=== PATIENT | male | born 1965 | race Two or more races ===

== ENCOUNTER 2018-11-15 10:01 | Inpatient (IN) | payer MEDICARE, OTHER, MEDICAID | END 2018-11-17 13:45 | disposition home or self-care (01) | LOC: ER 10:01 → TELE-CENTR 11-16 17:13 → TELE 10:02 → TELE-CENTR 14:22 | DX: R07.89 Other chest pain (principal); R00.1 Bradycardia, unspecified; F41.9 Anxiety disorder, unspecified; G47.00 Insomnia, unspecified; F32.9 Major depressive disorder, single episode, unspecified; M54.9 Dorsalgia, unspecified; G89.29 Other chronic pain; M94.0 Chondrocostal junction syndrome [Tietze]; E11.9 Type 2 diabetes mellitus without complications ==

== ENCOUNTER 2019-11-01 13:06 | Emergency (ER) | payer MEDICARE, OTHER ==
[~2019-11-01] VITALS: Ht 165.1 cm; Wt 70.3 kg
[~2019-11-01 13:06] MED LIST: BUSP5TAB51 PO; FENT25DI2 TD; HYDR2TAB58 PO; PREG50CA PO; TRAZ50TA2 PO
[2019-11-01 13:20] VITALS: BP 119/81
[2019-11-01] MEDS ORDERED: KETOROLAC TROMETH 60MG/2ML VIAL IM ONE (14:00)
== END 2019-11-01 14:22 | disposition home or self-care (01) ==
LOC: ER 13:06
DX: M25.461 Effusion, right knee (principal); M23.91 Unspecified internal derangement of right knee
CPT/HCPCS: 73562; 96372; 99283; J1885

== ENCOUNTER → 2021-08-21 | Emergency (ER) | payer MEDICARE, OTHER ==
[~2021-08-21] VITALS: Ht 165.1 cm; Wt 72.6 kg
[2021-08-21 22:28] VITALS: BP 139/80
== END | disposition left against medical advice (07) ==
LOC: ER 22:27
DX: F41.9 Anxiety disorder, unspecified (principal); R06.02 Shortness of breath; Z53.21 Procedure and treatment not carried out due to patient leaving prior to being seen by health care provider

== ENCOUNTER 2023-07-19 11:38 | Emergency (ER) | payer MEDICARE, OTHER ==
[~2023-07-19] VITALS: Ht 165.1 cm; Wt 80.5 kg
[~2023-07-19 11:38] MED LIST changes: +TRAZ-227 PO; -TRAZ50TA2 PO
[2023-07-19 12:32] VITALS: BP 125/81; PULSE 98; RESP 18; TEMP 98; O2SAT 95
[2023-07-19 13:42] LABS: Basophils # (auto) 0.1 10 ^3/uL (0-0.2); Eosinophils # (auto) 0.1 10 ^3/uL (0-0.8); Eosinophils % (auto) 1.4 % (0.0-7.0); Hematocrit 47.8 % (41.0-53.0); Hemoglobin 16.1 g/dL (13.5-17.5); Lymphocytes # (auto) 2.1 10 ^3/uL (0.4-5.4); Lymphocytes % (auto) 32.4 % (10.0-50.0); Mean Corpuscular Hgb Conc. 33.7 g/dL (32.0-36.0); Monocytes # (auto) 0.7 10 ^3/uL (0-1.3); Monocytes % (auto) 10.2 % (0.0-12.0); Neutrophils # (auto) 3.6 10 ^3/uL (1.6-8.6); Red Blood Cells 5.37 10^6/uL (4.5-5.90); Red Cell Distribution Width 13.5 % (11.8-14.3); White Blood Cell 6.6 10^3/uL (4.4-10.8)
[2023-07-19 13:56] LABS: Urine Bacteria NONE SEEN /hpf (None Seen); Urine Blood Negative /uL (Negative); Urine Clarity Clear (Clear); Urine Color Yellow (Yellow); Urine Mucus FEW (None Seen); Urine Protein, UAD TRACE (Negative); Urine Specific Gravity 1.024 (1.001-1.035); Urine Urobilinogen Normal (Negative); Urine WBC 1 /hpf (0 - 3); Urine pH 5.5 (5.0-8.0)
[2023-07-19 13:58] LABS: Amphetamine Screen, Urine Neg (NEGATIVE); Benzodiazephine Screen, Urine Pos (NEGATIVE)
[2023-07-19 13:59] LABS: Barbiturate Scree,Urine Neg (NEGATIVE); Cocaine Screen, Urine Neg (NEGATIVE); Opiate Scree,Urine Pos (NEGATIVE); Phencyclidine Screen, Urine Neg (NEGATIVE)
[2023-07-19 14:00] LABS: Cannabinoid Screen, Urine Pos (NEGATIVE)
[2023-07-19 14:02] LABS: Alanine Aminotransferase 15 U/L (7-40); Albumin 4.6 g/dL (3.2-4.8); Alkaline Phosphatase 102 U/L (46-116); Anion Gap 6 (5-15); Aspartate Aminotransferase 18 U/L (13-40); BUN/Creatinine Ratio 12.4 (10.0-20.0); Bilirubin, Total 0.6 mg/dL (0.2-1.0); Blood Urea Nitrogen 14 mg/dL (9-23); Calcium 9.6 mg/dL (8.7-10.4); Carbon Dioxide 28 mmol/L (20-30); Chloride 105 mmol/L (98-107); Glucose 136 mg/dL (74-106); Lipase 37 U/L (12-53); Potassium 4.6 mmol/L (3.5-5.1); Sodium 139 mmol/L (136-145); Total Protein 7.3 g/dL (5.7-8.2)
[2023-07-19] MEDS ORDERED: METO-281 PO (14:39)
== END 2023-07-19 14:49 | disposition home or self-care (01) ==
LOC: ER 11:38
DX: R11.2 Nausea with vomiting, unspecified (principal); F41.1 Generalized anxiety disorder; F19.10 Other psychoactive substance abuse, uncomplicated; Z88.6 Allergy status to analgesic agent; Z79.899 Other long term (current) drug therapy
CPT/HCPCS: 36415; 80053; 80307; 81001; 82962; 83690; 85025

== ENCOUNTER 2023-08-25 20:14 | Emergency (ER) | payer MEDICARE, OTHER ==
[~2023-08-25] VITALS: Ht 165.1 cm; Wt 82.0 kg
[~2023-08-25 20:14] MED LIST changes: +METO-281 PO
[2023-08-26] MEDS: HYDROmorphone HCL 2 MG/ML VL/or syr IM ONE (00:06)
[2023-08-26 00:07] VITALS: TEMP 98
[2023-08-26 00:36] VITALS: BP 117/77; PULSE 66; RESP 18; O2SAT 96
== END 2023-08-26 00:43 | disposition home or self-care (01) ==
LOC: ER 20:14
DX: M79.671 Pain in right foot (principal); F41.9 Anxiety disorder, unspecified; F32.9 Major depressive disorder, single episode, unspecified; F15.90 Other stimulant use, unspecified, uncomplicated; Z98.890 Other specified postprocedural states; Z88.8 Allergy status to other drugs, medicaments and biological substances; Z79.899 Other long term (current) drug therapy; W18.39XA Other fall on same level, initial encounter; Y93.89 Activity, other specified; Y92.89 Other specified places as the place of occurrence of the external cause; Y99.8 Other external cause status
CPT/HCPCS: 73630; 96372; 99283; J1170